=== PATIENT | female | born 1975 | race Caucasian/White ===

== ENCOUNTER 2021-11-03 11:28 | Outpatient (CLI) | payer OTHER, SELFPAY | END 2021-11-03 11:29 | disposition home or self-care (01) | LOC: FRMREF 11:41 | PROVIDERS: Visit Provider Physician Assistant Medical | DX: R35.0 Frequency of micturition (principal); N39.0 Urinary tract infection, site not specified | CPT/HCPCS: 87086; 87186 ==

== ENCOUNTER 2021-12-08 13:57 | Outpatient (CLI) | payer OTHER, SELFPAY ==
[2021-12-08 21:46] LABS: Cholesterol* 233 mg/dL (90-199); HDL Cholesterol* 54 mg/dL (>=50); LDL Cholesterol Calculated 153 mg/dL (<100); Triglycerides* 128 mg/dL (40-149)
[2021-12-09 17:28] LABS: Glucose* 88 mg/dL (60-115)
== END 2021-12-08 13:58 | disposition home or self-care (01) ==
LOC: FRMREF 14:00
PROVIDERS: Visit Provider Registered Nurse
DX: Z01.419 Encounter for gynecological examination (general) (routine) without abnormal findings (principal); Z13.1 Encounter for screening for diabetes mellitus; Z13.6 Encounter for screening for cardiovascular disorders
CPT/HCPCS: 80061; 82947

== ENCOUNTER 2021-12-26 14:53 | Outpatient (CLI) | payer OTHER, SELFPAY ==
[2021-12-26 21:55] LABS: Albumin* 4.6 g/dL (3.3-5.0)
[2021-12-26 21:56] LABS: Chloride* 104 mmol/L (96-114); Sodium* 139 mmol/L (135-149)
[2021-12-26 21:58] LABS: Aspartate Amino Transferase* 25 U/L (12-35); Bilirubin Total* 0.3 mg/dL (0.1-1.5); Carbon Dioxide* 24 mmol/L (20-32); Creatinine* 0.6 mg/dL (0.5-1.5); Estimated Glomerular Filt Rate 107 ml/min
[2021-12-26 21:59] LABS: Alanine Aminotransferase* 19 U/L (4-35); Alkaline Phosphatase* 116 U/L (40-150); Blood Urea Nitrogen* 16 mg/dL (7-30); Calcium* 9.2 mg/dL (8.4-10.6); Glucose* 101 mg/dL (60-115)
== END 2021-12-26 14:54 | disposition home or self-care (01) ==
LOC: FRMREF 14:55
PROVIDERS: Visit Provider Family Medicine
DX: M25.551 Pain in right hip (principal)
CPT/HCPCS: 80053

== ENCOUNTER 2022-01-26 09:47 | Outpatient (CLI) | payer OTHER, SELFPAY | END 2022-01-26 09:48 | disposition home or self-care (01) | PROVIDERS: Visit Provider Surgery | DX: Z12.11 Encounter for screening for malignant neoplasm of colon (principal); K63.5 Polyp of colon | CPT/HCPCS: 45385; 88305; J1200; J2250; J3010 ==

== ENCOUNTER 2022-02-01 09:12 | Outpatient (CLI) | payer OTHER, SELFPAY ==
--- NOTE | 2022-02-01 09:15 | CRLHL7_ITS ---
For Patients: As a result of the Century Cures Act, medical imaging exams and procedure reports are released immediately into your electronic medical record. You may view this report before your referring provider. If you have questions, please contact your health care provider. INDICATION: Right hip and sacroiliac joint pain. COMPARISON: Plain film 26 December 2021. TECHNIQUE: Coronal T1 and PD fat-sat and axial T1 pelvis with axial, coronal, sagittal and oblique axial PD fat-sat small field right hip sequences. FINDINGS: Right hip: No fracture, bone lesion or avascular necrosis. Subchondral cysts of the anterior acetabulum. Small approximately 6 mm periarticular ganglion or paralabral cyst at the periphery of the anterosuperior labrum. Assessment of the labrum is limited by paucity of fluid in the joint. Superior and posterior labrum appear normal. No secondary degenerative change of significance appreciated in the femoral head. Femoral acetabular morphology is within normal limits. Peritrochanteric tissues are normal. Intact hamstring. - Pelvis: The sacroiliac joints appear normal. No pelvic bone lesion or fracture. Left hip is unremarkable on large field imaging. No mass, fluid or adenopathy of significance in the pelvis or groin. 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 Para labral cyst or periarticular ganglion anteriorly. Dictated by Teddy Piedra MD @ 02/02/2022 8:56:16 AM (Electronically Signed)
== END 2022-02-01 09:13 | disposition home or self-care (01) ==
PROVIDERS: Visit Provider Family Medicine
DX: M25.511 Pain in right shoulder (principal); M16.11 Unilateral primary osteoarthritis, right hip
CPT/HCPCS: 73721

== ENCOUNTER 2022-02-10 14:28 | Outpatient (CLI) | payer OTHER, SELFPAY ==
--- NOTE | 2022-02-10 15:00 | CRLHL7_ITS ---
For Patients: As a result of the Cures Act, medical imaging exams and procedure reports are released immediately into your electronic medical record. You may view this report before your referring provider. If you have questions, please contact your health care provider. BILATERAL DIGITAL SCREENING MAMMOGRAM WITH COMPUTER-AIDED DETECTION CLINICAL HISTORY: Routine screening exam. COMPARISON: None TECHNIQUE: Digital mammogram in CC and MLO projections including computer-aided detection (CAD). BREAST COMPOSITION: There are scattered areas of fibroglandular density. FINDINGS: RIGHT Breast: No suspicious findings. LEFT Breast: Focal asymmetric density in the upper outer quadrant, 7 cm from the nipple. IMPRESSION: LEFT breast asymmetry/mass. RECOMMENDATIONS: Additional mammographic views of the LEFT breast including 3D spot compression CC/MLO. LEFT breast ultrasound may also be required. The [facility] will contact the patient for follow-up. BI-RADS Category 0: Incomplete: Need Additional Imaging Evaluation and/or Prior Mammograms for Comparison. A lay language report of this examination will be provided to the patient. Dictated by Tim Thapa MD @ 02/22/2022 12:47:45 PM CRL:[email or web address] RD/Dictated by: Tim Thapa MD @ 02/22/2022 12:47:00 PM (Electronically Signed)
== END 2022-02-10 14:29 | disposition home or self-care (01) ==
LOC: MAMMO 14:29
PROVIDERS: Visit Provider Registered Nurse
DX: Z12.31 Encounter for screening mammogram for malignant neoplasm of breast (principal); N63.20 Unspecified lump in the left breast, unspecified quadrant
CPT/HCPCS: 77067

== ENCOUNTER 2022-03-06 09:09 | Outpatient (CLI) | payer OTHER, SELFPAY ==
--- NOTE | 2022-03-06 09:45 | CRLHL7_ITS ---
For Patients: As a result of the Cures Act, medical imaging exams and procedure reports are released immediately into your electronic medical record. You may view this report before your referring provider. If you have questions, please contact your health care provider. DIGITAL DIAGNOSTIC LEFT MAMMOGRAM USING TOMOSYNTHESIS AND COMPUTER-AIDED DETECTION LEFT BREAST ULTRASOUND CLINICAL HISTORY: LEFT breast mass/asymmetry. COMPARISON: 02/10/2022. TECHNIQUE: Digital LEFT mammogram in two projections. Tomosynthesis and CAD utilized. Real-time ultrasound imaging of LEFT breast with imaging documentation. BREAST COMPOSITION: There are areas of scattered fibroglandular density. FINDINGS: 3D spot compression CC/MLO LEFT breast mammogram images submitted. Decreased conspicuity of previously noted asymmetric density within the upper outer quadrant. No architectural distortion. Targeted ultrasound performed 2 o`clock 7 cm from the nipple. Normal fibroglandular tissue is present. No suspicious findings. IMPRESSION: Normal additional views LEFT breast and normal targeted LEFT breast ultrasound. No evidence of malignancy. RECOMMENDATIONS: Annual BILATERAL screening mammography. Results and recommendations discussed with the patient. BI-RADS Category 2: Benign A lay language report of this examination will be provided to the patient. Dictated by Tim Thapa MD @ 03/06/2022 10:26:32 AM jj/Dictated by: Tim Thapa MD @ 03/06/2022 10:26:00 AM (Electronically Signed)
--- NOTE | 2022-03-06 10:15 | CRLHL7_ITS ---
For Patients: As a result of the Cures Act, medical imaging exams and procedure reports are released immediately into your electronic medical record. You may view this report before your referring provider. If you have questions, please contact your health care provider. PLEASE SEE DIGITAL DIAGNOSTIC LEFT MAMMOGRAM PERFORMED SAME DAY CRL:[email or web address] troncoso/Dictated by: Tim Thapa MD @ 03/06/2022 10:26:00 AM (Electronically Signed)
== END 2022-03-06 09:10 | disposition home or self-care (01) ==
PROVIDERS: Visit Provider Registered Nurse
DX: N63.20 Unspecified lump in the left breast, unspecified quadrant (principal); R92.8 Other abnormal and inconclusive findings on diagnostic imaging of breast
CPT/HCPCS: 76642; 77065; G0279

== ENCOUNTER 2022-06-09 20:59 | Emergency (ER) | payer OTHER, SELFPAY ==
[2022-06-09 21:07] VITALS: BP 139/86; PULSE 62; RESP 16; TEMP 36.6; O2SAT 97
--- NOTE | 2022-06-09 21:25 | CRLHL7_ITS ---
For Patients: As a result of the Century Cures Act, medical imaging exams and procedure reports are released immediately into your electronic medical record. You may view this report before your referring provider. If you have questions, please contact your health care provider. INDICATION: Dizziness COMPARISON: None available. TECHNIQUE: CT examination of the head was performed with 3 mm thick axial and 2 mm thick coronal and sagittal sections without intravenous contrast. Images were obtained from the vertex of the skull through the skull base, and I examined the images with the brain and bone windows. Please note that all CT scans at this facility use dose modulation, iterative reconstruction, and/or weight-based dosing when appropriate to reduce radiation dose to as low as reasonably achievable. FINDINGS: : The brain is normal in appearance for the patient`s age on today`s study, with no sign of mass lesion, mass effect, hemorrhage, or edema. The ventricles and sulci are normal in appearance for the patient`s age. Incidental note is made of a partially empty sella, a common finding in a patient of this age. The visualized portions of the orbits are normal in appearance. The visualized portions of the paranasal sinuses and mastoids are clear. The osseous structures are normal in their appearance with no sign of abnormality in the skull base or calvarium. IMPRESSION: Normal noncontrast CT of the head for the patient`s age. Nothing seen to correlate with the history of dizziness. Please note that all CT scans at this facility use dose modulation, iterative reconstruction, and/or weight-based dosing when appropriate to reduce radiation dose to as low as reasonably achievable. Dictated by Renny Ch MD @ 06/09/2022 10:02:36 PM (Electronically Signed)
[2022-06-09 22:05] LABS: Basophils Absolute Auto 0.02 K/uL (0.00-0.30); Basophils Percent Auto 0.3 % (0.0-3.0); Eosinophils Absolute Auto 0.09 K/uL (0.00-0.50); Eosinophils Percent Auto 1.4 % (0.0-7.0); Hematocrit 38.1 % (33.0-51.0); Hemoglobin* 12.8 gm/dL (12.0-16.0); Immature Granulocytes Abs Auto 0.06 K/uL (0.00-0.30); Immature Granulocytes Pct Auto 0.9 %; Lymphocytes Absolute Auto 1.55 K/uL (0.90-2.90); Lymphocytes Percent Auto 24.3 % (20-44); Mean Corpuscular HGB Conc 34 gm/dL (32-36); Mean Corpuscular Hemoglobin 29 pg (26-34); Mean Corpuscular Volume 88 fL (80-100); Monocytes Percent Auto 7.8 % (0.0-11.0); Neutrophils Absolute Auto 4.16 K/uL (1.7-7.0); Neutrophils Percent Auto 65.3 % (42.0-72.0); Platelet Count* 292 K/uL (140-440); RDW Coefficient of Variation % 12.4 % (11.5-15.5); Red Blood Count 4.35 m/uL (4.00-5.20); White Blood Count* 6.38 K/uL (4.50-11.00)
[2022-06-09 22:06] LABS: Slide Review Reflex No
[2022-06-09 22:20] LABS: Chloride* 104 mmol/L (96-114); Potassium* 4.1 mmol/L (3.6-5.1); Sodium* 138 mmol/L (135-149)
[2022-06-09 22:22] LABS: Creatinine* 0.6 mg/dL (0.5-1.5); Estimated Glomerular Filt Rate 106 ml/min
[2022-06-09 22:23] LABS: Blood Urea Nitrogen* 20 mg/dL (7-30); Calcium* 8.7 mg/dL (8.4-10.6); Carbon Dioxide* 27 mmol/L (20-32); Glucose* 127 mg/dL (60-115)
--- NOTE | 2022-06-09 22:39 | ED.DIZZY ---
HPI - Dizziness General Chief Complaint: Dizziness/Vertigo Stated Complaint: Vertigo Time Seen by Provider: 06/09/22 21:20 History of Present Illness HPI Narrative: Pt is a 57 year old woman seen with the assistance of the automotive parts interpreter who has been dizzy with true symptoms of vertigo for the past week after return from a cruise. Pt's daughter is a physician in [facility] and instructed the pt on [employer] which she has been doing. The pt still complains of dizziness when she moves her head. She has nausea as well. Pt also complains of muscle pain in the posterior neck on the left. Pt has no other neurological symptoms. Pt has minimal symptoms at rest but is concerned that symptoms have persisted this long. No overt headache. Related Data Home Medications Medication Instructions Recorded Confirmed No Known Home Medications 02/09/22 02/09/22 Allergies Allergy/AdvReac Type Severity Reaction Status Date / Time No Known Drug Allergies Allergy Verified 02/09/22 08:30 Review of Systems Status of ROS: Reports: 10 or more systems reviewed and unremarkable except as noted in History and below [facility] Medical History Urinary tract infection Surgical History H/O tubal ligation S/P section Social History Narrative: smokes outside Smoking Status: Never smoker Do you use any of these nicotine containing products: None Second hand tobacco smoke exposure: Yes How often do you have a drink containing alcohol: never AUDIT-C Alcohol total score: 0 Non-prescribed substance use: denies use Little interest or pleasure in doing things: not at all Feeling down, depressed, or hopeless: not at all service: No Exam Narrative: Exam Narrative: EXAM GENERAL: Patient appears comfortable and well. EYES: No scleral icterus. ENT: Tympanic membranes and oropharynx normal. THYROID: no thyroid nodules or thyromegaly. LYMPH: No supraclavicular or cervical lymphadenopathy. SKIN: Visible skin seen during exam normal or with benign process only. EXT: No dependent lower extremity pedal edema. HEART: Regular rate and rhythm with no murmurs, rubs, or gallops. LUNGS: Clear to auscultation bilaterally with no crackles or wheezes. ABD: Soft, non tender, non distended. PSYCH: Good eye contact, speech is not pressured. Neurologic: neurologic cranial nerves 2-12 grossly intact no focal defects Const: Vital Signs, click to edit/add: Vital Signs - 24 hr 06/09/22 21:07 Temperature 97.9 F Pulse Rate [Right Pulse Oximeter] 62 Respiratory Rate 16 Blood Pressure [Le ft Upper Arm] 139/86 Pulse Oximetry 97 Oxygen Delivery Me thod Room Air Course Course Hospital Course: Pt gildardo and examined. CT of head, cbc, bmp ekg ordered. Vital Signs Vital signs: Initial Vital Signs Temperature 97.9 F 06/09/22 21:07 Temperature Source Temporal Artery Scan 06/09/22 21:07 Pulse Rate 62 06/09/22 21:07 Pulse Rhythm 06/09/22 21:07 Respiratory Rate 16 06/09/22 21:07 Blood Pressure 139/86 06/09/22 21:07 Blood Pressure Mean 103 06/09/22 21:07 Pulse Oximetry 97 06/09/22 21:07 Oxygen Delivery Method 06/09/22 21:07 Vital Signs Temperature 97.9 F 06/09/22 21:07 Pulse Rate 62 06/09/22 21:07 Respiratory Rate 16 06/09/22 21:07 Blood Pressure 139/86 06/09/22 21:07 Pulse Oximetry 97 06/09/22 21:07 Oxygen Delivery Method 06/09/22 21:07 Temperature 97.9 F 06/09/22 21:07 Pulse Rate 62 06/09/22 21:07 Respiratory Rate 16 06/09/22 21:07 Blood Pressure 139/86 06/09/22 21:07 Pulse Oximetry 97 06/09/22 21:07 Oxygen Delivery Method 06/09/22 21:07 MDM - Dizziness MDM Narrative Medical decision making narrative: Pt is a 57 year old woman who presents with persistent vertigo. Work up unremarkable. Vitals and exam normal. Will continue [employer] training as well as anti-inflamatories for neck pain with PCP follow up. Differential Diagnosis Differential diagnosis: Likely adverse reaction to drug, benign paroxysmal positional vertigo, orthostatic hypotension, vertebral basilar insufficiency, cerebrovascular accident, acute vestibular neuronitis and transient cerebral ischemia Lab Data Labs: Lab Results 06/09/22 06/09/22 Range/Units 21:59 21:59 WBC 6.38 (4.50-11.00) K/uL RBC 4.35 (4.00-5.20) m/uL Hgb 12.8 (12.0-16.0) gm/dL Hct 38.1 (33.0-51.0) % MCV 88 (80-100) fL MCH 29 (26-34) pg MCHC 34 (32-36) gm/dL RDW Coeff of Betty 12.4 (11.5-15.5) % Plt Count 292 (140-440) K/uL Neut % (Auto) 65.3 (42.0-72.0) % Lymph % (Auto) 24.3 (20-44) % [place] % (Auto) 7.8 (0.0-11.0) % Eos % (Auto) 1.4 (0.0-7.0) % Baso % (Auto) 0.3 (0.0-3.0) % Neut # (Auto) 4.16 (1.7-7.0) K/uL Lymph # (Auto) 1.55 (0.90-2.90) K/uL [place] # (Auto) 0.50 (0.00-0.90) K/UL Eos # (Auto) 0.09 (0.00-0.50) K/uL Baso # (Auto) 0.02 (0.00-0.30) K/uL Sodium 138 (135-149) mmol/L Potassium 4.1 (3.6-5.1) mmol/L Chloride 104 (96-114) mmol/L Carbon Dioxide 27 (20-32) mmol/L BUN 20 (7-30) mg/dL Creatinine 0.6 (0.5-1.5) mg/dL Estimated GFR 106 ml/min Glucose 127 H (60-115) mg/dL Calcium 8.7 (8.4-10.6) mg/dL Discharge Plan Discharge Clinical Impression: Vertigo Patient Disposition: Home, Self-Care Condition: Stable Instructions: Vertigo (ED) Additional Instructions: Ice to neck four times per day Tylenol 650 mg three times per day as needed Motrin 600 mg three times per day as needed Continue Repositioning technique as previous Activity Level: No Restrictions Discharge Diet: Regular Prescriptions: No Action No Known Home Medications Follow Up/Referrals: Provider,Not a Local [Primary Care Provider] - Stand Alone Forms: [email or web address] Info Instructions
[2022-06-09 23:19] VITALS: BP 105/67; PULSE 60; RESP 16; TEMP 36.4
== END 2022-06-09 23:31 | disposition home or self-care (01) ==
PROVIDERS: Emergency Provider Internal Medicine
DX: R42 Dizziness and giddiness (principal)
CPT/HCPCS: 36415; 70450; 80048; 85025; 93005; 99283; 99284; 99285

== ENCOUNTER 2022-06-28 13:45 | Outpatient (RCR) | payer OTHER, SELFPAY | END 2022-10-19 23:59 | disposition home or self-care (01) | PROVIDERS: Visit Provider Family Medicine | DX: R42 Dizziness and giddiness (principal); Z51.89 Encounter for other specified aftercare | CPT/HCPCS: 97161; T1013 ==